=== PATIENT | male | born 1960 | race Caucasian/White ===

== ENCOUNTER 2016-08-17 09:11 | Emergency (ER) | payer BC ==
[2016-08-17 09:21] VITALS: BP 124/78
--- NOTE | 2016-08-17 10:07 | UC ---
Knee Pain HPI - HPI Summary HPI Summary: Patient presents with left knee pain after overusing the knee by climbing ladders and walking long distances. He has been taking Ibuprofen without relief. Pain is felt throughout the knee, not worse or better with standing or sitting and feels tight and stiff. The knee is not warm or red. He denies known trauma. He has never injured the knee in the past. Unknown if he has osteoarthritis. - History of Current Complaint Chief Complaint: UCLowerExtremity Stated Complaint: KNEE INJURY Time Seen by Provider: 08/17/16 09:49 Hx Obtained From: Patient Onset/Duration: Sudden Onset Severity Initially: Moderate Severity Currently: Moderate Location Of Injury: thoughtout the knee Pain Intensity: 8 Pain Scale Used: 0-10 Numeric Character: Aching, Spasmodic, Stiffness Aggravating Factor(s): Weight Bearing, Prolonged Standing, Stairs Alleviating Factor(s): Rest Associated Signs And Symptoms: Positive: Swelling, Redness Able to Bear Weight: No - Risk Factors Septic Arthritis Risk Factor: Negative Gout Risk Factor: Age ^ 40, Male - Allergies/Home Medications Allergies/Adverse Reactions: Allergies Allergy/AdvReac Type Severity Reaction Status Date / Time No Known Allergies Allergy Verified 10/11/15 09:32 Home Medications: Home Medications Ibuprofen [Advil] 800 mg PO 08/17/16 [History] PMH/Surg Hx/FS Hx/Imm Hx Previously Healthy: Yes - Surgical History Surgical History: Yes Surgery Procedure, Year, and Place: umbilical hernia repair, appy - Family History Known Family History: Positive: None - Social History Occupation: Employed Full-time Lives: With Family Alcohol Use: Daily Substance Use Type: None Smoking Status (MU): Never Smoked Tobacco Review of Systems Constitutional: Negative Eyes: Negative ENT: Negative Respiratory: Negative Cardiovascular: Negative Motor: Decreased ROM - tightness in the left knee Neurovascular: Negative Musculoskeletal: Arthralgia Neurological: Negative Psychological: Negative All Other Systems Reviewed And Are Negative: Yes Physical Exam Triage Information Reviewed: Yes Appearance: Well-Appearing, No Pain Distress, Well-Nourished Vital Signs: Initial Vital Signs Temp 97.4 F 08/17/16 09:17 Pulse 58 08/17/16 09:17 Resp 18 08/17/16 09:17 BP 124/78 08/17/16 09:17 Pulse Ox 100 08/17/16 09:17 Vital Signs Reviewed: Yes Eye Exam: Normal Eyes: Positive: Conjunctiva Clear Neck exam: Normal Neck: Positive: Supple, No Lymphadenopathy Respiratory Exam: Normal Respiratory: Positive: Chest non-tender Cardiovascular Exam: Normal Cardiovascular: Positive: RRR Musculoskeletal: Positive: Strength Intact - left knee pain with tigthness Neurological Exam: Normal Neurological: Positive: Alert Psychological Exam: Normal Psychological: Positive: Normal Response To Family Skin Exam: Normal Knee Pain Course/Dx - Course Course Of Treatment: Patient sent to xray. Acute swelling noted. Patient encouraged to follow up with Dr. Sandoval. Likely tendinitis d/t overuse. Ibprofen 600mg three times daily, d/t injury 2 weeks ago, stiffness, advised to switch to moist heat to promote movement. Patient agrees to follow up. Patient made aware of results and plan and is OK with discharge. Medications reviewed with patient. - Differential Dx/Diagnosis Differential Diagnosis/HQI/PQRI: Bursitis, Patellofemoral Syndrome, Strain, Tendonitis Provider Diagnoses: Knee Tendonitis Discharge - Discharge Plan Condition: Stable Disposition: HOME Patient Education Materials: Patellar Tendinitis (ED) Referrals: No Primary Care Phys,NOPCP [Primary Care Provider] - Raiza Sandoval MD [Medical Doctor] - Additional Instructions: Follow up with Dr. Sandoval Try to rest the knee as much as possible Ibuprofen 600mg three times daily. Moist heat to the knee 2-3 times per day Continue to move the knee to increase motion and strength
--- NOTE | 2016-08-17 10:32 | RAD ---
INDICATION: Left knee pain. TECHNIQUE: 4 views of the left knee were obtained. FINDINGS: The bones are in normal alignment. There is a small joint effusion. No fracture is seen. Joint spaces appear maintained. IMPRESSION: SMALL JOINT EFFUSION.
== END 2016-08-17 11:05 | disposition home or self-care (01) ==
LOC: UCEAST 09:11
DX: M76.9 Unspecified enthesopathy, lower limb, excluding foot (principal); X50.3XXA Overexertion from repetitive movements, initial encounter; Y92.9 Unspecified place or not applicable
CPT/HCPCS: 99212; G0463

== ENCOUNTER 2017-06-21 11:07 | Emergency (ER) | payer BC ==
[2017-06-21 11:28] VITALS: BP 144/92
--- NOTE | 2017-06-21 17:42 | UC ---
Gurinder Coleman Angela, scribed for Michel Ngyuen MD on 06/21/17 at 1129 . Skin Complaint HPI - HPI Summary HPI Summary: This pt is a 57 y/o male presenting to [facility] c/o insect bite since a couple of days ago. Pt states he noticed an insect bite a couple of days ago and that began to swell. Pt thought it was an ingrown hair and he took a needle to pop it and had some clear discharge. He reports feeling better after he did this. He also c/o left hip pain, and thought this was related to the ingrown hair. Pt is able to ambulate. Pt notes his pain is better now but has mild pain only with ambulation. 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 Associated Signs & Symptoms: Positive: Negative - Allergy/Home Medications Allergies/Adverse Reactions: Allergies Allergy/AdvReac Type Severity Reaction Status Date / Time No Known Allergies Allergy Verified 06/21/17 11:28 Review of Systems Constitutional: Negative Skin: Other - insect bite Eyes: Negative ENT: Negative Respiratory: Negative Cardiovascular: Negative Gastrointestinal: Negative Genitourinary: Negative Motor: Negative Neurovascular: Negative Musculoskeletal: Other: - left hip pain Neurological: Negative Psychological: Negative Is Patient Immunocompromised?: No All Other Systems Reviewed And Are Negative: Yes PMH/Surg Hx/FS Hx/Imm Hx Other Endocrine History: DENIES: diabetes Other Cardiovascular History: DENIES: HTN - Surgical History Surgical History: Yes Surgery Procedure, Year, and Place: umbilical hernia repair, appendectomy - Family History Known Family History: Negative: Cardiac Disease, Hypertension, Diabetes - Social History Alcohol Use: Daily Substance Use Type: None Smoking Status (MU): Never Smoked Tobacco Physical Exam - Summary Physical Exam Summary: VITAL SIGNS: Reviewed. GENERAL: Patient is a well-developed and nourished male who is lying comfortable in the stretcher. Patient is not in any acute respiratory distress. HEAD AND FACE: Normocephalic EYES: PERRLA, EOMI x 2. EARS: Hearing grossly intact. MOUTH: Oropharynx within normal limits. NECK: Supple, trachea is midline, no adenopathy, no JVD, no carotid bruit. CHEST: Symmetric, no tenderness at palpation LUNGS: Clear to auscultation bilaterally. No wheezing or crackles. CVS: Regular rate and rhythm, S1 and S2 present, no murmurs or gallops appreciated. ABDOMEN: Soft, non-tender. Bowel sounds are normal. No abdominal abnormal pulsations. EXTREMITIES: Full ROM in all major joints, no edema, no cyanosis or clubbing. NEURO: Alert and oriented x 3. No acute neurological deficits. Speech is normal and follows commands. SKIN: Dry and warm Triage Information Reviewed: Yes Vital Signs Reviewed: Yes Course/Dx - Course Course Of Treatment: This pt is a 57 y/o male presenting to [facility] c/o insect bite since a couple of days ago. Pt states he noticed an insect bite a couple of days ago and that began to swell. Pt thought it was an ingrown hair and he took a needle to pop it and had some clear discharge. He reports feeling better after he did this. He also c/o left hip pain, and thought this was related to the ingrown hair. Pt is able to ambulate. Pt notes his pain is better now but has mild pain only with ambulation. Since pt is feeling better, he will be discharged home. He denies any pain currently. Pt was instructed to return to the urgent care or go to ER immediately if any of the symptoms return or worsens. Plan of care was discussed with the patient and pt understands and agrees. All questions were answered to patient satisfaction. There were no further complaints or concerns. Pt will be discharged to home with follow up from his PCP. Pt is hemodynamically stable, alert and oriented x3. The patient was found to have increased blood pressure in UC. The patient will follow up with PCP for better control of BP. - Diagnoses Provider Diagnoses: Musculoskeletal pain Discharge - Sign-Out/Discharge Documenting (check all that apply): Discharge - discharge to home - Discharge Plan Condition: Stable Disposition: HOME Patient Education Materials: Musculoskeletal Pain (ED) Referrals: [facility] PHYSICIAN REFERRAL [Outside] No Primary Care Phys,NOPCP [Primary Care Provider] - Additional Instructions: Return to the UC if symptoms worsen The documentation as recorded by the Gurinder robles Angela accurately reflects the service I personally performed and the decisions made by me, Michel Nguyen MD.
== END 2017-06-21 11:32 | disposition home or self-care (01) ==
LOC: UCEAST 11:07
DX: M25.552 Pain in left hip (principal)
CPT/HCPCS: 99211; G0463

== ENCOUNTER 2019-02-15 06:32 | Day surgery (SDC) | payer BC ==
[~2019-02-15 06:32] MED LIST: Buffered Lidocaine 1% SYRIN* 1 ML/SYRINGE INTRADERM ONE
[2019-02-15] MEDS ORDERED: Midazolam* 1 MG/ML 2 ML VIAL (2 MG) ONE (07:48)
[2019-02-15 08:53] VITALS: BP 105/85
[2019-02-15] MEDS ORDERED: Povidone Iodine 5% OPTH* 30 ML BTL ONE (09:26)
[2019-02-15] MEDS ORDERED: Cyclopentolate 1% OPTH.SOL* 2 ML BTL ONE (09:26)
[2019-02-15] MEDS ORDERED: Phenylephrine OPHTH SOL 2.5%* 2 ML ONE (09:26)
[2019-02-15] MEDS ORDERED: Proparacaine 0.5% OPHTH.SOL* 15 ML BTL ONE (09:26)
[2019-02-15] MEDS ORDERED: acetaZOLAMIDE TAB* 250 MG ONE (09:26)
[2019-02-15] MEDS ORDERED: Lidocaine 1% MPF ** 5 ML VIAL ONE (09:26)
[2019-02-15] MEDS ORDERED: Ketorolac 0.5% OPHTH (NF) 0.5 % 5 ML BTL ONE (09:26)
[2019-02-15] MEDS ORDERED: Neomycin/Polymy/Dex OPTH.SUSP* MAXITROL 0.1% 5 ML ONE (09:26)
[2019-02-15] MEDS ORDERED: Lidocaine 2% w/ EPI 1:200,000* 20 ML SDV VIAL ONE (09:26)
--- NOTE | 2019-02-15 12:05 | OP ---
OPERATIVE NOTE: DATE OF OPERATION: 02/15/19 DATE OF : 60 SURGEON: Heriberto Ng M.D. PREOPERATIVE DIAGNOSIS: Cataract, right eye. POSTOPERATIVE DIAGNOSIS: Cataract, right eye. OPERATIVE PROCEDURE: Extracapsular cataract extraction with intraocular lens implant, right eye. PROCEDURE: The patient was brought to the operating room after being given 1/2% Alcaine with epineph rine drops in the preoperative area. The eye was prepped and draped in the usual sterile fashion. S terile drape and eyelid speculum were placed. Again, topical 1/2% Alcaine with epinephrine was given . A paracentesis incision was made at the 9 o'clock position with the No.75 blade. Clear cornea inc ision 2.2 x 2.2-mm was created at the 12 o'clock position starting at the anterior limbus using the 2 .2-mm keratome. The anterior chamber was irrigated with 0.4 mL of 1% non-preservative intracameral l idocaine and filled with DisCoVisc. A capsulorrhexis was completed using the cystotome and the Utrat a forceps. Hydrodissection was performed with balanced salt solution. The lens nucleus was removed w ith the Phacoemulsification handpiece without incident. Cortex was removed with the irrigation-aspir ation handpiece. The capsular bag was re-inflated using DisCoVisc and an [id number] implant was inser chris with the shooter. The irrigation-aspiration handpiece was used to remove all residual DisCoVisc. The eye was refilled with balanced salt solution and the wound checked and found to be watertight. Topical Maxitrol drops were given. [id number]/[facility] #: [id number]
== END 2019-02-15 08:46 | disposition home or self-care (01) ==
LOC: OREAST 06:32
PROVIDERS: ATTEND Specialist
DX: H25.811 Combined forms of age-related cataract, right eye (principal); Z87.891 Personal history of nicotine dependence; M19.90 Unspecified osteoarthritis, unspecified site
CPT/HCPCS: A9270-GY; J2250; V2632